=== PATIENT | male | born 1990 | race Caucasian/White ===

== ENCOUNTER 2023-01-22 07:07 | Emergency (ER) | payer MEDICARE, MEDICAID ==
[~2023-01-22] VITALS: Ht 172.7 cm; Wt 110.9 kg
[2023-01-22 07:07] VITALS: BP 127/73
[2023-01-22] MEDS ORDERED: MIDOTAB PO (07:13)
[2023-01-22] MEDS ORDERED: KETOROLAC 60MG 2ML VIAL IM ONE (10:15)
[2023-01-22] MEDS ORDERED: AMOX875T2 PO (10:15)
[2023-01-22] MEDS ORDERED: AUGMENTIN 875 MG TAB PO ONE (10:15)
== END 2023-01-22 10:23 | disposition home or self-care (01) ==
LOC: M ED 07:07
DX: K04.7 Periapical abscess without sinus (principal); K08.89 Other specified disorders of teeth and supporting structures; R27.0 Ataxia, unspecified; F84.0 Autistic disorder; F31.9 Bipolar disorder, unspecified; F17.200 Nicotine dependence, unspecified, uncomplicated
CPT/HCPCS: 96372; 99282; J1885